=== PATIENT | female | born 1990 | race Hispanic/Latino ===

== ENCOUNTER 2022-09-20 19:09 | Emergency (ER) | payer BC, MEDICAID, OTHER ==
[~2022-09-20] VITALS: Ht 154.9 cm; Wt 63.0 kg
[2022-09-20 20:40] VITALS: BP 120/78
[2022-09-20 21:09] LABS: BASOPHILS % (AUTO) 0.6 % (0.0-5.0); EOSINOPHILS % (AUTO) 2.4 % (0.0-8.0); HEMATOCRIT 40.1 % (36-48); LYMPHOCYTES % (AUTO) 45.9 % (21.0-51.0); MEAN CORPUSCULAR HEMOGLOBIN 30.5 pg (27.0-33.0); MEAN CORPUSCULAR HGB CONC 33.4 g/dL (32.0-36.0); MEAN CORPUSCULAR VOLUME 91.3 fL (79-99); MONOCYTES % (AUTO) 11.6 % (3.0-13.0); NEUTROPHILS % (AUTO) 39.5 % (40.0-77.0); PLATELET COUNT (AUTO) 212 K/uL (130-400); RED BLOOD CELL COUNT(AUTO) 4.39 MIL/uL (4.00-5.50); RED CELL DISTRIBUTION WIDTH 12.5 % (11.0-15.5); WHITE BLOOD COUNT (AUTO) 3.3 K/uL (4.8-10.8)
[2022-09-20 21:10] LABS: APPEARANCE,URINE CLEAR (CLEAR); BILIRUBIN,URINE NEGATIVE (NEGATIVE); COLOR,URINE LIGHT-YELLOW (YELLOW); GLUCOSE, URINE (UA) NEGATIVE (NEGATIVE); KETONES,URINE NEGATIVE (NEGATIVE); LEUKOCYTE ESTERASE ,URINE NEGATIVE Leu/uL (NEGATIVE); NITRATE,URINE NEGATIVE (NEGATIVE); OCCULT BLOOD,URINE SMALL (NEGATIVE); PROTEIN,URINE NEGATIVE (NEGATIVE); UROBILINOGEN,URINE 0.2 mg/dL (0.2-1.0)
[2022-09-20 21:15] LABS: MUCUS,URINE RARE LPF (None Seen); SQUAMOUS EPITHELIAL CELL,UR FEW /HPF (0-2); WBC,URINE 0-1 /HPF (0-1)
[2022-09-20 21:19] LABS: CREATININE 0.7 mg/dL (0.5-1.5); POTASSIUM 4.1 mmol/L (3.5-5.1)
[2022-09-20 21:27] LABS: ALBUMIN 4.1 g/dL (3.5-5.0); TOTAL PROTEIN, SERUM 7.8 g/dL (6.0-8.3)
[2022-09-20] MEDS ORDERED: MORPHINE 2 MG SYG IVP ONE (21:30)
[2022-09-20] MEDS ORDERED: ZOSYN 3.375GM +NS 50ML IV ONE (21:30)
[2022-09-20] MEDS ORDERED: IOHEXOL 350 MG/ML 100ML INFUS..BTL IV ONE (22:09)
[2022-09-20] MEDS ORDERED: IBUP-1493 PO (22:56)
[2022-09-20] MEDS ORDERED: AMOX1TAB16 PO (22:56)
[2022-09-20] MEDS ORDERED: METR-172 PO (22:56)
== END 2022-09-20 23:33 | disposition home or self-care (01) ==
LOC: EDH 19:09
DX: K57.92 Diverticulitis of intestine, part unspecified, without perforation or abscess without bleeding (principal); Z79.1 Long term (current) use of non-steroidal anti-inflammatories (NSAID)
CPT/HCPCS: 99285; 74177; 96365; 80053; 83690; 85025; 81001; 81025; 36415; J2543; Q9967

== ENCOUNTER 2023-01-29 16:45 | Emergency (ER) | payer OTHER ==
[~2023-01-29] VITALS: Ht 154.9 cm; Wt 59.0 kg
[~2023-01-29 16:45] MED LIST: AMOX1TAB16 PO; IBUP-1493 PO; METR-172 PO
[2023-01-29 16:57] LABS: BASOPHILS % (AUTO) 0.2 % (0.0-5.0); EOSINOPHILS % (AUTO) 0.7 % (0.0-8.0); LYMPHOCYTES % (AUTO) 9.9 % (21.0-51.0); MEAN CORPUSCULAR HEMOGLOBIN 30.8 pg (27.0-33.0); MEAN CORPUSCULAR HGB CONC 33.3 g/dL (32.0-36.0); MEAN CORPUSCULAR VOLUME 92.4 fL (79-99); MONOCYTES % (AUTO) 6.2 % (3.0-13.0); NEUTROPHILS % (AUTO) 82.8 % (40.0-77.0); PLATELET COUNT (AUTO) 196 K/uL (130-400); RED BLOOD CELL COUNT(AUTO) 4.22 MIL/uL (4.00-5.50); RED CELL DISTRIBUTION WIDTH 12.4 % (11.0-15.5); WHITE BLOOD COUNT (AUTO) 5.5 K/uL (4.8-10.8)
[2023-01-29] MEDS ORDERED: 0.9%NACL 1000ML 1,000 ML IV ONE (17:00)
[2023-01-29 17:03] LABS: APPEARANCE,URINE CLEAR (CLEAR); BILIRUBIN,URINE NEGATIVE (NEGATIVE); COLOR,URINE YELLOW (YELLOW); GLUCOSE, URINE (UA) NEGATIVE (NEGATIVE); KETONES,URINE NEGATIVE (NEGATIVE); LEUKOCYTE ESTERASE ,URINE NEGATIVE Leu/uL (NEGATIVE); NITRATE,URINE NEGATIVE (NEGATIVE); OCCULT BLOOD,URINE LARGE (NEGATIVE); PH,URINE 5.5 (5.0-8.0); PROTEIN,URINE 30 mg/dL (NEGATIVE); UROBILINOGEN,URINE 0.2 mg/dL (0.2-1.0)
[2023-01-29 17:09] LABS: BACTERIA,URINE RARE /HPF (None Seen); MUCUS,URINE FEW LPF (None Seen); RBC,URINE 51-100 /HPF (0-1); SQUAMOUS EPITHELIAL CELL,UR RARE /HPF (0-2); WBC,URINE 0-1 /HPF (0-1)
[2023-01-29 17:12] LABS: CREATININE 0.6 mg/dL (0.5-1.5); POTASSIUM 3.5 mmol/L (3.5-5.1)
[2023-01-29 17:16] LABS: ALBUMIN 4.1 g/dL (3.5-5.0); MAGNESIUM 1.9 mg/dL (1.80-2.40); TOTAL PROTEIN, SERUM 7.1 g/dL (6.0-8.3)
[2023-01-29 19:10] VITALS: BP 102/83
== END 2023-01-29 19:13 | disposition home or self-care (01) ==
LOC: EDH 16:45
DX: E86.0 Dehydration (principal); R55 Syncope and collapse; R51.9 Headache, unspecified; Z79.899 Other long term (current) drug therapy; Z98.890 Other specified postprocedural states
CPT/HCPCS: 99285; 96360; 71045; 96361; 83735; 80053; 85025; 81001; 81025; 36415; 93005; J7030

== ENCOUNTER 2023-03-28 17:54 | Emergency (ER) | payer OTHER ==
[~2023-03-28] VITALS: Ht 154.9 cm; Wt 59.0 kg
[2023-03-28 18:25] LABS: HEMATOCRIT 38.4 % (36-48); MEAN CORPUSCULAR HEMOGLOBIN 30.9 pg (27.0-33.0); MEAN CORPUSCULAR HGB CONC 34.4 g/dL (32.0-36.0); MEAN CORPUSCULAR VOLUME 89.9 fL (79-99); RED BLOOD CELL COUNT(AUTO) 4.27 MIL/uL (4.00-5.50); RED CELL DISTRIBUTION WIDTH 13.1 % (11.0-15.5); WHITE BLOOD COUNT (AUTO) 5.7 K/uL (4.8-10.8)
[2023-03-28 18:34] LABS: CREATININE 0.6 mg/dL (0.5-1.5)
[2023-03-28 18:39] LABS: ALBUMIN 3.9 g/dL (3.5-5.0); TOTAL PROTEIN, SERUM 7.2 g/dL (6.0-8.3)
[2023-03-28 20:52] VITALS: BP 119/68; PULSE 75; RESP 18; O2SAT 98
[2023-03-28 21:03] LABS: APPEARANCE,URINE CLOUDY (CLEAR); BILIRUBIN,URINE NEGATIVE (NEGATIVE); COLOR,URINE LIGHT-YELLOW (YELLOW); GLUCOSE, URINE (UA) NEGATIVE (NEGATIVE); KETONES,URINE NEGATIVE (NEGATIVE); LEUKOCYTE ESTERASE ,URINE NEGATIVE Leu/uL (NEGATIVE); NITRATE,URINE NEGATIVE (NEGATIVE); OCCULT BLOOD,URINE LARGE (NEGATIVE); PROTEIN,URINE 10 mg/dL (NEGATIVE); UROBILINOGEN,URINE 0.2 mg/dL (0.2-1.0)
[2023-03-28 21:07] LABS: BACTERIA,URINE FEW /HPF (None Seen); MUCUS,URINE RARE LPF (None Seen); SQUAMOUS EPITHELIAL CELL,UR RARE /HPF (0-2); YEAST,URINE BUDDING FEW /HPF (None Seen)
[2023-03-28 21:11] LABS: HCG,QUALITATIVE URINE POSITIVE (NEGATIVE)
== END 2023-03-28 21:28 | disposition home or self-care (01) ==
LOC: EDH 17:54
DX: O20.0 Threatened abortion (principal); Z3A.01 Less than 8 weeks gestation of pregnancy; I95.9 Hypotension, unspecified; Z90.49 Acquired absence of other specified parts of digestive tract; Z79.899 Other long term (current) drug therapy
CPT/HCPCS: 36415; 76801; 80053; 81001; 81025; 84702; 85027; 86850; 86900; 86901

== ENCOUNTER 2023-04-07 06:49 | Day surgery (SDC) | payer OTHER ==
[2023-04-06 16:44] VITALS: BP 118/62; PULSE 65; RESP 20
[2023-04-06 16:54] LABS: BASOPHILS # (AUTO) 0.02 K/uL (0.00-0.20); BASOPHILS % (AUTO) 0.3 % (0.0-5.0); EOSINOPHILS # (AUTO) 0.02 K/uL (0.00-0.70); EOSINOPHILS % (AUTO) 0.3 % (0.0-8.0); HEMATOCRIT 38.7 % (36-48); IMMATURE GRANULOCYTE ABSOLUTE 0.01 K/uL (0-1); LYMPHOCYTES # (AUTO) 1.8 K/uL (1.0-4.8); LYMPHOCYTES % (AUTO) 32.1 % (21.0-51.0); MEAN CORPUSCULAR HEMOGLOBIN 31.1 pg (27.0-33.0); MEAN CORPUSCULAR HGB CONC 33.3 g/dL (32.0-36.0); MEAN CORPUSCULAR VOLUME 93.3 fL (79-99); MONOCYTES # (AUTO) 0.3 K/uL (0.1-1.0); MONOCYTES % (AUTO) 5.9 % (3.0-13.0); NEUTROPHILS # (AUTO) 3.5 K/uL (1.8-7.7); NEUTROPHILS % (AUTO) 61.2 % (40.0-77.0); PLATELET COUNT (AUTO) 250 K/uL (130-400); RED BLOOD CELL COUNT(AUTO) 4.15 MIL/uL (4.00-5.50); RED CELL DISTRIBUTION WIDTH 12.9 % (11.0-15.5); WHITE BLOOD COUNT (AUTO) 5.7 K/uL (4.8-10.8)
[~2023-04-07] VITALS: Ht 154.9 cm; Wt 60.1 kg
[2023-04-07 06:55] VITALS: BP 106/57; PULSE 64; RESP 16
[2023-04-07] MEDS ORDERED: CEFAZOLIN SODIUM 2 GM VIAL ONE (07:03)
[2023-04-07] MEDS ORDERED: LACTATED RINGERS 1000ML 1,000 ML IV ONE (07:03)
[2023-04-07] MEDS ORDERED: DEXAMETHASONE SOD PHOSPHATE 10MG/ML 1ML VIAL ONE (07:34)
[2023-04-07] MEDS ORDERED: LIDOCAINE PF 100MG/5ML (2%) SYRINGE 5ML ONE (07:34)
[2023-04-07] MEDS ORDERED: ONDANSETRON 4MG INJ ONE (07:35)
[2023-04-07] MEDS ORDERED: FENTANYL CITRATE PF 50 MCG/1 ML 2ML VIAL ONE (07:35)
[2023-04-07] MEDS ORDERED: MIDAZOLAM HCL 1 MG/ML 2ML VIAL ONE (07:35)
[2023-04-07] MEDS ORDERED: PROPOFOL 10 MG/ML 20ML VIAL IV ONE (07:35)
[2023-04-07] MEDS ORDERED: OXYTOCIN 10 USP UNITS/ML ONE ×2 (08:30)
[2023-04-07] MEDS ORDERED: METHYLERGONOVINE MALEATE 0.2 MG/1 ML ML ONE (08:32)
[2023-04-07 09:45] VITALS: BP 91/50; PULSE 63; RESP 16
[2023-04-07 09:55] VITALS: BP 94/52; PULSE 64; RESP 15
[2023-04-07 10:05] VITALS: BP 100/55; PULSE 51; RESP 15
[2023-04-07 10:15] VITALS: BP 102/58; PULSE 50; RESP 16
== END 2023-04-07 10:25 | disposition home or self-care (01) ==
LOC: SUH 06:49 → DAH 06:49 → SUH 10:25
PROVIDERS: ATTEND Obstetrics & Gynecology
DX: O02.1 Missed abortion (principal); Z20.822 Contact with and (suspected) exposure to COVID-19; N81.3 Complete uterovaginal prolapse; Z98.890 Other specified postprocedural states; Z98.891 History of uterine scar from previous surgery; Z90.89 Acquired absence of other organs; Z79.899 Other long term (current) drug therapy
CPT/HCPCS: 84703; 85025; 86850; 86900; 86901; 87426; 36415; 59820; A6260; A4663; J7120 ×2; J3010; J1100; J2001; J2250; J2590 ×2; J2704; J2405; J2210; J0690; A4930; A4351; A4649; A4215; A4223; A4222; A4221; A4600; A4510; J3490

== ENCOUNTER 2024-02-22 19:13 | Emergency (ER) | payer OTHER ==
[~2024-02-22] VITALS: Ht 154.9 cm; Wt 59.0 kg
[2024-02-22 19:44] LABS: BASOPHILS # (AUTO) 0.03 K/uL (0.00-0.20); BASOPHILS % (AUTO) 0.4 % (0.0-5.0); EOSINOPHILS # (AUTO) 0.06 K/uL (0.00-0.70); EOSINOPHILS % (AUTO) 0.9 % (0.0-8.0); HEMATOCRIT 37.4 % (36-48); IMMATURE GRANULOCYTE ABSOLUTE 0.02 K/uL (0-1); LYMPHOCYTES # (AUTO) 2.5 K/uL (1.0-4.8); LYMPHOCYTES % (AUTO) 37.3 % (21.0-51.0); MEAN CORPUSCULAR HEMOGLOBIN 30.7 pg (27.0-33.0); MEAN CORPUSCULAR HGB CONC 34.2 g/dL (32.0-36.0); MEAN CORPUSCULAR VOLUME 89.7 fL (79-99); MONOCYTES # (AUTO) 0.5 K/uL (0.1-1.0); MONOCYTES % (AUTO) 7.5 % (3.0-13.0); NEUTROPHILS # (AUTO) 3.6 K/uL (1.8-7.7); NEUTROPHILS % (AUTO) 53.6 % (40.0-77.0); PLATELET COUNT (AUTO) 331 K/uL (130-400); RED BLOOD CELL COUNT(AUTO) 4.17 MIL/uL (4.00-5.50); RED CELL DISTRIBUTION WIDTH 12.1 % (11.0-15.5); WHITE BLOOD COUNT (AUTO) 6.7 K/uL (4.8-10.8)
[2024-02-22 19:54] LABS: CREATININE 0.6 mg/dL (0.5-1.0); POTASSIUM 4.2 mmol/L (3.5-5.1)
[2024-02-22 20:05] LABS: ALBUMIN 3.7 g/dL (3.5-5.0); BILIRUBIN,TOTAL 0.3 mg/dL (0.2-1.0); TOTAL PROTEIN, SERUM 7.7 g/dL (6.0-8.3)
[2024-02-22 20:33] LABS: APPEARANCE,URINE CLEAR (CLEAR); BILIRUBIN,URINE NEGATIVE (NEGATIVE); COLOR,URINE YELLOW (YELLOW); GLUCOSE, URINE (UA) NEGATIVE (NEGATIVE); KETONES,URINE NEGATIVE (NEGATIVE); LEUKOCYTE ESTERASE ,URINE NEGATIVE Leu/uL (NEGATIVE); NITRATE,URINE NEGATIVE (NEGATIVE); OCCULT BLOOD,URINE TRACE-INTACT (NEGATIVE); PH,URINE 6.5 (5.0-8.0); PROTEIN,URINE NEGATIVE (NEGATIVE); UROBILINOGEN,URINE 0.2 mg/dL (0.2-1.0)
[2024-02-22 20:41] LABS: ADD UA MICROSCOPIC YES
[2024-02-22] MEDS: ONDANSETRON 4MG INJ IVP ONE (20:56)
[2024-02-22] MEDS: FAMOTIDINE 20MG VIAL IV ONE (20:56)
[2024-02-22] MEDS: KETOROLAC 30MG VIAL (30MG/ML) IVP ONE (20:57)
[2024-02-22 21:41] LABS: BACTERIA,URINE Few /HPF (None Seen); MUCUS,URINE Rare LPF (None Seen); RBC,URINE 0-1 /HPF (0-1); SQUAMOUS EPITHELIAL CELL,UR Few /HPF (0-2); WBC,URINE 0-1 /HPF (0-1)
[2024-02-22] MEDS ORDERED: ONDA-243 PO (21:57)
[2024-02-22] MEDS ORDERED: FAMO-136 PO (21:57)
[2024-02-22 23:59] VITALS: BP 144/72; PULSE 68; RESP 16; O2SAT 100
== END 2024-02-22 22:25 | disposition home or self-care (01) ==
LOC: EDH 19:13
DX: K29.70 Gastritis, unspecified, without bleeding (principal); R10.2 Pelvic and perineal pain; Z90.49 Acquired absence of other specified parts of digestive tract; Z98.890 Other specified postprocedural states
CPT/HCPCS: 99285; 96374; 96375; 71045; 96361; 84484; 80053; 84702; 83690; 85025; 81001; 36415; 93005; J3490; J2405; J1885

== ENCOUNTER 2024-10-30 06:23 | Day surgery (SDC) | payer OTHER ==
[2024-10-28 13:43] VITALS: BP 120/62; PULSE 64; RESP 16; TEMP 98.4
[2024-10-28 14:28] LABS: BASOPHILS # (AUTO) 0.03 K/uL (0.00-0.20); BASOPHILS % (AUTO) 0.5 % (0.0-5.0); EOSINOPHILS # (AUTO) 0.13 K/uL (0.00-0.70); EOSINOPHILS % (AUTO) 2.2 % (0.0-8.0); HEMATOCRIT 39.7 % (36-48); IMMATURE GRANULOCYTE ABSOLUTE 0.01 K/uL (0-1); LYMPHOCYTES # (AUTO) 2.1 K/uL (1.0-4.8); LYMPHOCYTES % (AUTO) 35.3 % (21.0-51.0); MEAN CORPUSCULAR HEMOGLOBIN 30.3 pg (27.0-33.0); MEAN CORPUSCULAR VOLUME 91.7 fL (79-99); MONOCYTES # (AUTO) 0.4 K/uL (0.1-1.0); MONOCYTES % (AUTO) 6.5 % (3.0-13.0); NEUTROPHILS # (AUTO) 3.2 K/uL (1.8-7.7); NEUTROPHILS % (AUTO) 55.3 % (40.0-77.0); PLATELET COUNT (AUTO) 350 K/uL (130-400); RED BLOOD CELL COUNT(AUTO) 4.33 MIL/uL (4.00-5.50); RED CELL DISTRIBUTION WIDTH 12.7 % (11.0-15.5); WHITE BLOOD COUNT (AUTO) 5.8 K/uL (4.8-10.8)
[2024-10-28 14:46] LABS: PROTHROMBIN TIME 10.6 SEC (9.6-11.6)
[2024-10-28 14:47] LABS: PARTIAL THROMBOPLASTIN TIME 25.1 SEC (26.3-35.5)
[2024-10-28 15:36] LABS: CREATININE 0.6 mg/dL (0.5-1.0); POTASSIUM 4.3 mmol/L (3.5-5.1)
[2024-10-30] VITALS (18 sets, daily range): BP systolic 84–108; BP diastolic 42–67; PULSE 55–91; RESP 14–18; TEMP 97.2–98
[~2024-10-30] VITALS: Ht 154.9 cm; Wt 64.0 kg
[2024-10-30] MEDS: PHENAZOpyridine HCL 200 MG TAB 200 MG TABLET ONE (07:19)
[2024-10-30] MEDS: LACTATED RINGERS 1000ML 1,000 ML IV ONE (07:19)
[2024-10-30] MEDS: dexaMETHasone SOD PHOSPHATE 4 MG/ML 1ML VIAL ONE (07:20)
[2024-10-30] MEDS: metRONIDazole 500MG/100ML BAG 100 ML ONE (07:20)
[2024-10-30] MEDS: SCOPOLAMINE HYDROBROMIDE 1 EACH ADH..PATCH TD ONE (07:20)
[2024-10-30] MEDS: ceFAZolin SODIUM 1 GM VIAL ONE (07:21)
[2024-10-30] MEDS ORDERED: LIDOCAINE PF 100MG/5ML (2%) SYRINGE 5ML ONE (09:44)
[2024-10-30] MEDS ORDERED: dexaMETHasone SOD PHOSPHATE 4 MG/ML 1ML VIAL ONE (09:44)
[2024-10-30] MEDS ORDERED: rocuRONium bROMide 10MG/1ML 5ML VL ONE ×2 (09:47→11:44)
[2024-10-30] MEDS ORDERED: FENTanyl CITRate PF 50 MCG/1 ML 2ML VIAL ONE ×2 (09:47→11:45)
[2024-10-30] MEDS ORDERED: ketOROlac 30MG VIAL (30MG/ML) ONE (09:47)
[2024-10-30] MEDS ORDERED: GLYCOPYRROLATE 0.2 MG/ML 5 ML VIAL ONE (09:47)
[2024-10-30] MEDS ORDERED: ondanSETRON 4MG INJ ONE (09:47)
[2024-10-30] MEDS ORDERED: NEOSTIGMINE METHYLSULFATE 1MG/ML IV ONE (09:47)
[2024-10-30] MEDS ORDERED: proPOFol 10 MG/ML 20ML VIAL IV ONE (09:47)
[2024-10-30] MEDS ORDERED: MIDAZOLAM HCL 1 MG/ML 2ML VIAL ONE (09:47)
[2024-10-30] MEDS ORDERED: LIDOCAINE 1%-EPI 1:100,000 20 ML VIAL ONE (10:23)
[2024-10-30] MEDS ORDERED: CLOTRIMAZOLE 30 GM CREAM.GM. TP ONE (11:00)
[2024-10-30] MEDS: BUPIvacaine/PF 0.25% 30ML VIAL IJ ONE (11:00)
--- NOTE | 2024-10-30 12:42 | OP ---
Operative Note: DATE OF PROCEDURE: 10/30/24 SURGEON: LINSEY PRATER MD LINE WORKER: [none] ANESTHESIA: [general] ANESTHESIOLOGIST/BEVEL MILL OPERATOR: [general] PREOPERATIVE DIAGNOSIS: [uterine prolapse] POSTOPERATIVE DIAGNOSIS: [same plus adhesions] SYNOPSIS: [na] PROCEDURE: [total vaginal hysterectomy, uterosacral ligament plication, left salpingectomy, cystoscopy] ESTIMATED BLOOD LOSS: [20-30 cc] INDICATIONS: [na] DESCRIPTION OF PROCEDURE: [the patient and her were visited in the holding area and the planned operation stated in plain georgian and she had no additional questions. She was taken to the OR and placed under anesthesia and prepped and draped in theusual sterile fashion in the [facility] and her bladder was drained. A time out was taken to confirm the patient's identity, the planned operation, medication administrtion and allergies. A weighted speculum was placed in the vagina and the anterior and posterior lips of the cervix were grasped with gaetano tenaculua and the cervix was circumscribed with the cautery, the posterior culdesac was entered sharply and the long duckbill speculum was inserted, the anterior vaginal mucosa was dissected and the anterior peritoneum entered and a right angle placed. The uterosacral ligaments were clamped, divided and ligated in rocky fashion and held. Serial bites on the lateral aspects of the uterus were taken bilaterally up to the level of the uterovarian ligaments which were clamped and an adhesion of omentum to the fundus was lysed and then the uterus was amputated. The left tube was easily accessible and it was clamped and removed and ligated with free tie. The right tube and ovary were not visible and would not mobilize with gentle traction. the area was inspected, irrigated and rendered hemostatic, the stay sutures on the uterovarian ligaments were cut, the short bladed weighted specul um was placed and the uterosacral ligaments were followed up about 2 cm bilaterally, they were both very thin and attenuated, not easily delineated, and a figure of eight suture was placed to plicate them. The cuff was closed with interrupted Vicryl and atthe uterosacral ligaments the previously placed ties were tied to the closure sutures. The area was irrigated and all was hemo static. A cystoscopy was performed which showed normal bladder interior and bilateral ureteral orifices effluxing strong jets of urine. Saline was left in the bladder for later voiding trial. Sponge, lap and needle counts were correct at the the end of the case and the patient was awakened and taken to the recovery room in stable condition. The patient's was called and notified of the patient's stability. Linsey Prater MD] LINSEY PRATER MD Oct 30, 2024 12:42
[2024-10-30] MEDS: FENTanyl CITRate PF 50 MCG/1 ML 2ML VIAL ONE (12:55)
[2024-10-30] MEDS ORDERED: SUGAMMADEX SODIUM 200 MG/2 ML VIAL IV ONE (13:59)
[2024-10-30] MEDS ORDERED: ondanSETRON 4MG INJ IVP PRN (14:00)
[2024-10-30] MEDS: ondanSETRON 4MG INJ IVP ONE (14:24)
[2024-10-30] MEDS: acetaMINOPHEN 500 MG TABLET PO ONE (14:24)
--- NOTE | 2024-10-30 16:27 | NUR ---
Full and complete discharge instructions given to Patient and Family both verbally and in writing. Explained Surgical procedure precautions and follow up. Scant amount of serous fluid to joan pad. Voided 450 clear yellow urine.Denies c/o pain but admits mild pressure. All questions answered. PIV removed with catheter tip intact. Home with Family W/C to POV.
== END 2024-10-30 16:37 | disposition home or self-care (01) ==
LOC: DAH 06:23
PROVIDERS: ATTEND Obstetrics & Gynecology
DX: N81.4 Uterovaginal prolapse, unspecified (principal); N72 Inflammatory disease of cervix uteri; N80.03 Adenomyosis of the uterus; Z90.89 Acquired absence of other organs; Z90.49 Acquired absence of other specified parts of digestive tract; Z80.49 Family history of malignant neoplasm of other genital organs; Z79.01 Long term (current) use of anticoagulants; Z79.899 Other long term (current) drug therapy
CPT/HCPCS: 80048; 85025; 85610; 85730; 86850; 86900; 86901; 36415; 58262; 81025; 88305; J1100 ×2; J1885; A4663; J7120 ×2; A4351; J3010 ×3; J0690; J0665; J3490 ×4; J2003; J2250; J2704; J2405 ×2; J2710; A4649; A4215; A4223; A4222; A4221; A4510; A4600